=== PATIENT | female | born 1945 | race Caucasian/White ===

== ENCOUNTER 2022-04-11 09:36 | Emergency (ER) | payer MEDICAID ==
[~2022-04-11] VITALS: Ht 154.9 cm; Wt 63.5 kg
[~2022-04-11 09:36] MED LIST: CAT.1 PO; CHOL100062 PO; LIP40 PO; LOSA100T3 PO; METO-290 PO; OMEP40CA20 PO; PRO40 PO
[2022-04-11 09:42] VITALS: BP_SYST 147
[2022-04-11] MEDS ORDERED: MAG HYDROX/AL HYDROX/SIMETH 30 ML, LIDOCAINE VISCOUS 2% 15ML (PO) 15 ML, DICYCLOMINE HC... PO ONE ×3 (11:00)
[2022-04-11] MEDS ORDERED: ONDANSETRON HCL 4 MG/2 ML VIAL IVP ONE ×2 (11:00)
[2022-04-11] MEDS ORDERED: NACL 0.9% 1,000 ML IV ONE (11:00)
[2022-04-11 11:18] LABS: BASOPHILS # (AUTO) 0.1 K/uL (0.0-0.2); BASOPHILS % (AUTO) 0.8 % (0.0-2.0); EOSINOPHILS % (AUTO) 0.1 % (0.0-4.0); HEMATOCRIT 35.8 % (36-48); HEMOGLOBIN 12.3 g/dL (12.0-16.0); LYMPHOCYTES # (AUTO) 0.7 K/uL (1.0-5.5); LYMPHOCYTES % (AUTO) 8.9 % (20.5-51.5); MEAN CORPUSCULAR HEMOGLOBIN 28 pg (27-31); MEAN CORPUSCULAR HGB CONC 34 % (32-36); MEAN CORPUSCULAR VOLUME 82 fL (79.0-98.0); MONOCYTES # (AUTO) 0.3 K/uL (0.0-1.0); MONOCYTES % (AUTO) 3.8 % (1.7-9.3); NEUTROPHILS # (AUTO) 7.2 K/uL (1.8-7.7); NEUTROPHILS % (AUTO) 86.4 % (40.0-70.0); PLATELET COUNT (AUTO) 298 K/uL (130-430); RED BLOOD CELL COUNT(AUTO) 4.37 MIL/uL (4.2-6.2); RED CELL DISTRIBUTION WIDTH 14.8 % (9.0-15.0); WHITE BLOOD COUNT (AUTO) 8.4 K/uL (4.8-10.8)
[2022-04-11 11:33] LABS: ANION GAP 10 (5-15); CALCIUM 8.3 mg/dL (8.4-11.0); CHLORIDE 94 mmol/L (98-107); CREATININE 0.51 mg/dL (0.55-1.30); GLUCOSE 113 mg/dL (70-99); POTASSIUM 3.9 mmol/L (3.5-5.1); SODIUM SERUM 131 mmol/L (136-145); UREA NITROGEN, BLOOD 7 mg/dL (8-21)
[2022-04-11 11:37] LABS: ALANINE AMINOTRANSFERASE 26 U/L (12-78); ALBUMIN 3.4 g/dL (3.4-4.8); ASPARTATE AMINOTRANSFERASE 20 U/L (10-37); LIPASE 78 U/L (73-393); TOTAL BILIRUBIN 1.3 mg/dL (0.0-1.0)
[2022-04-11 11:43] LABS: BILIRUBIN,URINE NEGATIVE (NEGATIVE); CLARITY/URINE CLEAR (CLEAR); COLOR,URINE YELLOW (YELLOW); GLUCOSE,URINE NEGATIVE (NEGATIVE); KETONES,URINE NEGATIVE (NEGATIVE); LEUKOCYTE ESTERASE ,URINE NEGATIVE (NEGATIVE); NITRITE, URINE NEGATIVE (NEGATIVE); PROTEIN URINE NEGATIVE (NEGATIVE); UROBILINOGEN,URINE 0.2 (0.2-1.0)
[2022-04-11 11:50] LABS: BLOOD, URINE TRACE (NEGATIVE)
[2022-04-11 11:52] LABS: BACTERIA,URINE FEW /HPF (None Seen); MUCUS,URINE None Seen /LPF (None Seen); RBC,URINE NONE SEEN /HPF (0-3); WBC,URINE 0-3 /HPF (0-3)
[2022-04-11] MEDS ORDERED: ONDA-8 TL (12:07)
[2022-04-11] MEDS ORDERED: ANT30 PO (12:07)
[2022-04-11] MEDS ORDERED: DICY10CA13 PO (12:07)
[2022-04-11 12:23] VITALS: BP_SYST 134
== END 2022-04-11 12:23 | disposition home or self-care (01) ==
LOC: SED 09:36
DX: K29.00 Acute gastritis without bleeding (principal); R10.13 Epigastric pain; I10 Essential (primary) hypertension
CPT/HCPCS: 36415; 74018; 80053; 81000; 83690; 85025; 96361; 96374; 99284; J2001; J2405; J7030

== ENCOUNTER 2022-05-31 07:09 | Emergency (ER) | payer MEDICAID ==
[~2022-05-31] VITALS: Ht 147.3 cm; Wt 56.7 kg
[~2022-05-31 07:09] MED LIST changes: +ANT30 PO; +DICY10CA13 PO; +ONDA-8 TL
[2022-05-31 07:36] VITALS: BP_SYST 195
[2022-05-31] MEDS ORDERED: ALPR0.25 PO (07:44)
--- NOTE | 2022-05-31 07:45 | NUR ---
Placed in rm 6 for eval. Ambulatory to rm with walker; gait steady.
--- NOTE | 2022-05-31 07:45 | NUR ---
Patient to ER bed 8 to gown for evaluation. Side rails up. Report given to EVERARDO DODSON.
--- NOTE | 2022-05-31 08:08 | NUR ---
Pt here with dtr in law from home reporting multiple complaints. Per dtr in law, pt had SOB and chest pressure yesterday but none currently. Pt also reporting lower abd pain (unable to number) and intermittent constipation [employer]. Urine cup provided for sample. pt alert and oriented x 3 upon face to face assessment. Pending MD landry.
--- NOTE | 2022-05-31 08:26 | NUR ---
MARLEEN Perez at bedside examining patient.
--- NOTE | 2022-05-31 09:11 | NUR ---
Pt to CT scan via [facility]
[2022-05-31 09:48] LABS: BILIRUBIN,URINE NEGATIVE (NEGATIVE); CLARITY/URINE CLEAR (CLEAR); COLOR,URINE YELLOW (YELLOW); GLUCOSE,URINE NEGATIVE (NEGATIVE); KETONES,URINE NEGATIVE (NEGATIVE); LEUKOCYTE ESTERASE ,URINE 1+ (NEGATIVE); NITRITE, URINE NEGATIVE (NEGATIVE); PH,URINE 6.5 (5.0-8.0); PROTEIN URINE NEGATIVE (NEGATIVE); UROBILINOGEN,URINE 0.2 (0.2-1.0)
[2022-05-31 09:50] LABS: BLOOD, URINE TRACE (NEGATIVE)
[2022-05-31 10:07] LABS: BACTERIA,URINE FEW /HPF (None Seen)
--- NOTE | 2022-05-31 10:12 | NUR ---
# 22 gauge angiocath placed to L AC. Use of asceptic technique. Opsite placed over site. Blood return noted. Blood for lab drawn from site. Flushed with 10 cc of normal saline. No evidence of infiltration noted. Patient tolerated well.
[2022-05-31 10:21] LABS: MEAN CORPUSCULAR HGB CONC 35 % (32-36)
[2022-05-31 11:07] LABS: HEMATOCRIT 36.1 % (36-48); HEMOGLOBIN 12.5 g/dL (12.0-16.0); MEAN CORPUSCULAR HEMOGLOBIN 29 pg (27-31); MEAN CORPUSCULAR VOLUME 83 fL (79.0-98.0); RED BLOOD CELL COUNT(AUTO) 4.37 MIL/uL (4.2-6.2); RED CELL DISTRIBUTION WIDTH 14.9 % (9.0-15.0)
--- NOTE | 2022-05-31 11:22 | NUR ---
Repositioned patient, Pt bedding wet, adult brief clean and dry. Pt tolerated well, cooperative. Pt resting in beds lowest position, rails up and HOB semi-fowlers.
[2022-05-31 11:23] LABS: PLATELET COUNT (AUTO) 307 K/uL (130-430)
[2022-05-31 11:24] LABS: BASOPHILS % (AUTO) 0.7 % (0.0-2.0); EOSINOPHILS % (AUTO) 0.7 % (0.0-4.0); LYMPHOCYTES % (AUTO) 16.6 % (20.5-51.5); MONOCYTES % (AUTO) 4.5 % (1.7-9.3); NEUTROPHILS % (AUTO) 77.5 % (40.0-70.0)
[2022-05-31 11:26] LABS: LYMPHOCYTES # (AUTO) 1.1 K/uL (1.0-5.5); MONOCYTES # (AUTO) 0.3 K/uL (0.0-1.0); NEUTROPHILS # (AUTO) 4.9 K/uL (1.8-7.7); WHITE BLOOD COUNT (AUTO) 6.3 K/uL (4.8-10.8)
[2022-05-31] MEDS ORDERED: NACL 0.9% 1,000 ML IV ONE (11:30)
[2022-05-31] MEDS ORDERED: cefTRIAXone 1 GM in D5W 50 ML IV ONE (11:30)
[2022-05-31 11:36] LABS: ALANINE AMINOTRANSFERASE 14 U/L (12-78); ALBUMIN 3.2 g/dL (3.4-4.8); ANION GAP 4 (5-15); ASPARTATE AMINOTRANSFERASE 20 U/L (10-37); CALCIUM 8.8 mg/dL (8.4-11.0); CHLORIDE 104 mmol/L (98-107); CREATININE 0.46 mg/dL (0.55-1.30); GLUCOSE 109 mg/dL (70-99); LIPASE 70 U/L (73-393); POTASSIUM 3.6 mmol/L (3.5-5.1); SODIUM SERUM 136 mmol/L (136-145); UREA NITROGEN, BLOOD 6 mg/dL (8-21)
[2022-05-31] MEDS ORDERED: cefTRIAXone 1 GM VIAL ONE (11:58)
[2022-05-31 12:15] LABS: ERYTHROCYTE SEDIMENTATION RATE 20 MM/HR (0-20)
[2022-05-31] MEDS ORDERED: POLY17PO17 PO (12:46)
[2022-05-31] MEDS ORDERED: CEFI200T PO (12:46)
[2022-05-31] MEDS ORDERED: DOCU-144 PO (12:46)
--- NOTE | 2022-05-31 14:15 | NUR ---
Patient's son given written and verbal discharge instructions and verbalizes understanding. ER MD discussed with patient the results and treatment provided. Patient in stable condition. ID arm band removed. IV catheter removed intact and dressing applied, no active bleeding. Rx of Cefixime, Colace, and Healthylax given. Patient educated on pain management and to follow up with PMD. Pain improved. Opportunity for questions provided and answered. Medication side effect fact sheet provided.
[2022-05-31 14:21] VITALS: BP_SYST 170
== END 2022-05-31 14:21 | disposition home or self-care (01) ==
LOC: SED 07:09
DX: N39.0 Urinary tract infection, site not specified (principal); R07.89 Other chest pain; R10.30 Lower abdominal pain, unspecified; E78.00 Pure hypercholesterolemia, unspecified; I10 Essential (primary) hypertension; K59.09 Other constipation; Z79.899 Other long term (current) drug therapy
CPT/HCPCS: 36415; 74176; 76376; 80053; 81000; 83690; 84484; 85025; 85651; 87086; 87186; 93005; 96365; 99285; J0696

== ENCOUNTER 2022-08-11 12:20 | Emergency (ER) | payer MEDICAID ==
[~2022-08-11] VITALS: Ht 147.3 cm; Wt 59.0 kg
[2022-08-11 12:20] VITALS: BP_SYST 141
[~2022-08-11 12:20] MED LIST changes: +ALPR0.25 PO; -ANT30 PO; +CEFI200T PO; -CHOL100062 PO; -DICY10CA13 PO; +DOCU-144 PO; -LIP40 PO; -METO-290 PO; -OMEP40CA20 PO; -ONDA-8 TL; +POLY17PO17 PO; -PRO40 PO
--- NOTE | 2022-08-11 12:45 | NUR ---
Patient triaged and placed in waiting room. VSS and patient appears in no acute distress at this time. Accompanied by FAMILY, awaiting available bed, and MD notified of need for MSE.
--- NOTE | 2022-08-11 14:02 | NUR ---
DR ROMO OUT TO TRIAGE ROOM TO EVALUATE PT.
[2022-08-11] MEDS ORDERED: NEOM28.36 TP (14:12)
[2022-08-11] MEDS ORDERED: ACYC400T19 PO (14:12)
--- NOTE | 2022-08-11 14:32 | NUR ---
Patient given written and verbal discharge instructions and verbalizes understanding. ER MD discussed with patient the results and treatment provided. Patient in stable condition. ID arm band removed Rx of ACYCLOVIR, NEOSPORIN given. Patient educated on pain management and to follow up with PMD. Pain Scale 0/10. Opportunity for questions provided and answered. Medication side effect fact sheet provided.
== END 2022-08-11 14:32 | disposition home or self-care (01) ==
LOC: SED 12:20
DX: B02.9 Zoster without complications (principal); R21 Rash and other nonspecific skin eruption; I10 Essential (primary) hypertension; E78.5 Hyperlipidemia, unspecified; Z79.899 Other long term (current) drug therapy
CPT/HCPCS: 99283